=== PATIENT | female | born 2000 | race Caucasian/White ===

== ENCOUNTER 2018-03-30 10:44 | Outpatient (CLI) | payer OTHER ==
--- NOTE | 2018-03-30 12:04 | ULT ---
TRANSABDOMINAL AND TRANSVAGINAL PELVIC ULTRASOUND: INDICATIONS: History of left ovarian cyst. COMPARISON: None. TECHNIQUE: Johnson-scale, color Doppler evaluation, and duplex with spectral analysis was performed of the pelvis v ia a transabdominal and transvaginal approach. FINDINGS: The uterus measured 6.7 x 3.2 x 3.6 cm. The endometrial stripe measures 3 mm. The right ovary measures 2.6 x 1.6 x 1.3 cm. The left ovary measures 2 x 1.4 x 1.2 cm. There is nor mal vascular flow to both ovaries. A small amount of fluid is seen within the cul-de-sac of Ramiro. IMPRESSION: 1. No ovarian cyst demonstrated. 2. Small amount of fluid in the posterior cul-de-sac may reflect physiologic fluid. POS: [facility]
== END 2018-03-30 10:45 | disposition home or self-care (01) ==
LOC: SCSULT 10:44
DX: N83.202 Unspecified ovarian cyst, left side (principal)
CPT/HCPCS: 76856